=== PATIENT | male | born 1960 | race African-American/Black ===

== ENCOUNTER 2017-03-13 03:38 | Emergency (ER) | payer MEDICARE ==
[2017-03-13] MEDS ORDERED: KETOROLAC TROMETHAMINE 60 MG/2 ML VIAL IM ONE (04:25)
[2017-03-13] MEDS ORDERED: ORPHENADRINE CITRATE 60 MG/2ML IM ONE (04:25)
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
[2017-03-13 06:23] VITALS: BP 112/71
== END 2017-03-13 06:10 | disposition home or self-care (01) ==
LOC: ED 03:38
DX: S22.42XA Multiple fractures of ribs, left side, initial encounter for closed fracture (principal); S00.93XA Contusion of unspecified part of head, initial encounter; V87.7XXA Person injured in collision between other specified motor vehicles (traffic), initial encounter; Y93.9 Activity, unspecified; Y99.9 Unspecified external cause status
CPT/HCPCS: 70450; 71100; 72040; J1885; J2360; 96372; 99283; 99284